=== PATIENT | female | born 1955 | race Two or more races ===

== ENCOUNTER 2024-02-07 06:18 | Emergency (ER) | payer OTHER ==
[~2024-02-07] VITALS: Ht 157.5 cm; Wt 68.0 kg
[~2024-02-07 06:18] MED LIST: [UNRECOGNIZED DRUG - OTHER]
[2024-02-07] MEDS: SODIUM CHLORIDE 0.9% 500 ML IV ONE (07:15)
[2024-02-07 07:51] LABS: Basophils # (auto) 0.1 10 ^3/uL (0-0.2); Basophils % (auto) 0.5 % (0.0-2.0); Eosinophils # (auto) 0 10 ^3/uL (0-0.8); Eosinophils % (auto) 0.4 % (0.0-7.0); Hematocrit 42.8 % (36.0-46.0); Hemoglobin 15.1 g/dL (12.2-16.2); Lymphocytes # (auto) 1.4 10 ^3/uL (0.4-5.4); Lymphocytes % (auto) 13.1 % (10.0-50.0); Mean Corpuscular Hemoglobin 29.4 pg (28.0-32.0); Mean Corpuscular Hgb Conc. 35.2 g/dL (32.0-36.0); Mean Corpuscular Volume 83.6 fL (80.0-100.0); Monocytes # (auto) 0.5 10 ^3/uL (0-1.3); Monocytes % (auto) 4.4 % (0.0-12.0); Neutrophils % (auto) 81.6 % (37.0-80.0); Red Blood Cells 5.12 10^6/uL (4.0-5.20); Red Cell Distribution Width 13.4 % (11.8-14.3)
[2024-02-07 08:01] LABS: Alanine Aminotransferase 34 U/L (7-40); Alkaline Phosphatase 132 U/L (46-116); Calcium 9.5 mg/dL (8.5-10.1); Chloride 109 mmol/L (98-107)
[2024-02-07 08:02] LABS: Albumin 3.7 g/dL (3.2-4.8); Anion Gap 7 (5-15); Aspartate Aminotransferase 29 U/L (13-40); BUN/Creatinine Ratio 22.9 (10.0-20.0); Bilirubin, Total 0.6 mg/dL (0.2-1.0); Blood Urea Nitrogen 16 mg/dL (9-23); Carbon Dioxide 24 mmol/L (20-30); Glucose 165 mg/dL (74-106); Magnesium 1.9 mg/dL (1.6-2.6); Potassium 3.8 mmol/L (3.5-5.1); Sodium 140 mmol/L (136-145); Total Protein 6.8 g/dL (5.7-8.2)
[2024-02-07] MEDS: MECLIZINE HCL 25 MG TAB PO ONE (08:53)
[2024-02-07] MEDS: SODIUM CHLORIDE 0.9% 1,000 ML IV ONE (08:53)
[2024-02-07] MEDS: FUROSEMIDE 20 MG/2 ML VIAL IV ONE (08:55)
[2024-02-07] MEDS: LORazepam 2MG/ML-1ML VIAL IV ONE (08:55)
[2024-02-07 09:46] LABS: Urine Bacteria FEW /hpf (None Seen); Urine Blood TRACE /uL (Negative); Urine Clarity Clear (Clear); Urine Color Light-Yellow (Yellow); Urine Mucus FEW (None Seen); Urine Protein, UAD Negative (Negative); Urine Specific Gravity 1.013 (1.001-1.035); Urine Urobilinogen Normal (Negative); Urine WBC 1 /hpf (0 - 5)
[2024-02-07] MEDS ORDERED: OLME40TA76 PO (10:08)
[2024-02-07] MEDS ORDERED: MECL25CH85 PO (10:08)
[2024-02-07] MEDS ORDERED: ZOFR4T PO (10:09)
[2024-02-07 10:12] VITALS: BP 128/87; TEMP 98.2
[2024-02-07 10:13] VITALS: PULSE 20; RESP 20; O2SAT 96
== END 2024-02-07 10:23 | disposition home or self-care (01) ==
LOC: ER 06:18
DX: I10 Essential (primary) hypertension (principal); R73.9 Hyperglycemia, unspecified; R42 Dizziness and giddiness; R11.2 Nausea with vomiting, unspecified; E78.5 Hyperlipidemia, unspecified; Z79.899 Other long term (current) drug therapy
CPT/HCPCS: 36415; 71046; 80053; 81001; 83735; 84443; 84484; 85025; 93005; 96374; 96375; 99285; J1940; J2060; J8597